=== PATIENT | female | born 1950 | race Caucasian/White ===

== ENCOUNTER 2018-10-23 19:38 | Inpatient (IN) ==
[2018-10-23] MEDS ORDERED: NALOXONE HCL 0.4 MG/1 ML VIAL/CARP IV PRN ×3 (20:09→21:22)
[2018-10-23] MEDS ORDERED: BISACODYL 10 MG SUPP PR PRN ×2 (20:09→21:22)
[2018-10-23] MEDS ORDERED: MAGNESIUM HYDROXIDE SUSP 30 ML UDC PO PRN ×2 (20:09→21:22)
[2018-10-23] MEDS ORDERED: ONDANSETRON INJ 2 MG/ML 2 ML VIAL IV PRN (20:14)
[2018-10-23] MEDS ORDERED: ACETAMINOPHEN 500 MG TAB PO PRN (20:27)
[2018-10-23] MEDS: MoRPHine SULFATE 4 MG/ML 1 ML CARP\\VIAL IV PRN (20:35)
[2018-10-23] MEDS ORDERED: DOCUSATE SODIUM/SENNA 50/8.6MG TAB PO SCH (21:22)
--- NOTE | 2018-10-23 21:41 | Progress Note ---
DATE: 10/23/2018 I was contacted from [place] about a patient who had fallen and injured her left hip. I accepted her in transfer. She is a patient of Dr. Johnston's and has had bilateral total hip arthroplasties. She tripped and fell landing on her left hip, sustaining a spiral fracture of her left distal femur distal to the hip implant with a butterfly fragment. She also has pain in her left hand. Further details can be gathered from Nicolasa Saravia's history and physical. Exam of the left hand shows no significant swelling. There is palmar bruising. She has full movement of the wrist and fingers with some discomfort in the central carpus near the carpometacarpal articulation. The distal radius and snuffbox area are not tender. The metacarpophalangeal joints in the remainder of the fingers are not tender. Skin closed. Circulation intact. Median, radial and ulnar motor and sensory intact. Left thigh is closed without bleeding and no significant swelling. Tenderness to mid thigh. Hip, knee, lower leg nontender. 1+ dorsalis pedis. She is in a Hare traction splint and was transferred over to a [facility]. She can feel her foot throughout with normal sensation to light touch and has 5/5 ankle and toe plantar flexion and dorsiflexion strength. CBC and PRP are noted. Her BUN is a little bit high and potassium is low. EKG has been obtained and chest x-ray shows no acute process. Hand x-rays show minor degenerative change but no acute fracture or dislocation is noted. Report reviewed. A lateral view of the hip is ordered. AP view of the pelvis shows bilateral hip arthroplasties without obvious complication. There is no dislocation. She does have some osteolysis around the left hip cup. Femur and knee x-rays show a spiral fracture with a large butterfly fragment anteriorly involving the distal femur. This is distal to the hip implant and goes down to the condylar flare. Her health history is noted. She is relatively healthy. A medical consult has been ordered. She has high blood pressure, smokes and has osteoporosis. She does not have any issues with metal sensitivity, MRSA, bleeding, blood clots, infections, cancer, diabetes. IMPRESSION: Left hand contusion and a left distal femur fracture. PLAN: Findings discussed. I will touch base with Dr. Johnston to see if he is available and any recommendations he may have. Otherwise, we will proceed to the OR tomorrow for open reduction internal fixation. This would involve a long lateral incision, open reduction of the fracture and plate and screws along with cables proximally. She is educated about the procedure. We talked about the risks, benefits and options and an informed consent was obtained. N.p.o. after midnight. Pain control, DVT prophylaxis with SCDs, icing. Palmer's traction 15 pounds. Check lateral hip x-ray.
--- NOTE | 2018-10-23 21:44 | XRay Report ---
XR hip LT 1V CLINICAL HISTORY: Dislocation status post reduction COMPARISON: 2007 DISCUSSION: A crosstable lateral view of the left hip is provided for interpretation. There are posts urgical changes of a total hip arthroplasty. No dislocation is visualized. IMPRESSION: Crosstable lateral view revealing no evidence of dislocation Electronically signed by: Maikel Arora M.D. 10/23/2018 9:43 PM
--- NOTE | 2018-10-23 21:58 | History and Physical Report ---
DATE OF ADMISSION: 10/23/2018 CHIEF COMPLAINT: Left femur pain with recent fall. HISTORY OF PRESENT ILLNESS: A 68-year-old female seen in the Emergency Room this evening by myself and Dr. Bass with a history of falling around 3:00 p.m. this afternoon at work. She went to [facility] and was found to have a left femur fracture, transferred to [facility] for definitive care. The patient has a history of bilateral total hip replacements by Dr. Johnston, the left hip 16 years ago, the right hip 7 years ago. She states until now she has had no issues with her left hip. She denies any back pain. She denies any numbness or tingling down either of her legs. PAST MEDICAL HISTORY: Significant for high blood pressure, high cholesterol. PAST SURGICAL HISTORY: Include left hip replacement 16 years ago, right hip replacement 7 years ago, appendectomy, soft tissue surgery with cyst removal around right clavicle/neck area. The patient denies any problems with anesthesia. MEDICATIONS: Include Lipitor 20 mg 1 tablet by mouth once daily, Ecotrin low strength 81 mg, aspirin 1 tablet by mouth daily, vitamin D 1000 units 2 capsules p.o. daily, hydrochlorothiazide 25 mg 1 tablet by mouth daily, tramadol 50 mg 1 tablet by mouth every 6 hours as needed for pain. ALLERGIES: CORTISONE, DICLOFENAC, LISINOPRIL, LOSARTAN. SOCIAL HISTORY: One-half pack per day smoker for the past 13 years, does not drink alcohol. REVIEW OF SYSTEMS: Positive for above HPI; otherwise, the patient denies fevers, chills, sweats, chest pain, shortness of breath, numbness or tingling into her lower extremities or injury to any other part of her body. PHYSICAL EXAMINATION: VITAL SIGNS: Blood pressure 156/91, pulse 97, respirations 20, temperature 37.4, oxygen sats on room air 97%. The patient is 5 feet 7, 85.5 kg. GENERAL: A 68-year-old female in no acute distress, alert and oriented x3 with normal mood and affect. Does appear to be in discomfort, however, on exam. HEENT: Head is normocephalic, atraumatic. She is wearing glasses. External ear is intact. NOSE: Nares are patent. Sclerae are normal. Extraocular movements are intact. Pupils equal, round, reactive to light. NOSE: Nares are patent. Mouth: Upper dentures, no teeth in her lower. Mucosa moist. No erythema, edema or exudate. NECK: Supple, nontender. No JVD, no carotid bruits. CARDIAC: Regular rate and rhythm. No murmurs, gallops or rubs. LUNGS: Clear to auscultation. No wheezes, rales or rhonchi. ABDOMEN: Soft, nontender, bowel sounds evident in all 4 quadrants. EXTREMITIES: Lower extremity: The patient is neurovascularly intact. Bilateral lower extremity with palpable dorsalis pedis, posterior tibial pulse. Calves are soft. Negative Edmond. Brisk capillary refill. Able to wiggle toes and ankle. The patient has no pain with log rolling to her right hip. Significant pain with any movement to her left hip. Skin to her left hip is intact with a healed scar. DIAGNOSTIC STUDIES: X-rays AP pelvis view, x-ray femur 2 view and left knee 2 view were performed and reviewed by Dr. Bass. X-rays show bilateral total hip arthroplasties. There is a comminuted oblique fracture of the distal left femoral diaphysis with medial displacement of the distal fracture fragment, suprapatellar joint effusion. IMPRESSION: Comminuted oblique fracture of the distal left femoral diaphysis with medial displacement of the distal fracture fragment. PLAN: The patient was seen by Dr. Bass. He discussed with the patient admission to the hospital with plans to perform open reduction and internal fixation of a left femur fracture tomorrow on 10/24/2018 when she is seen and cleared by anesthesia and medicine. The patient is aware of potential risks, complications and outcomes of the surgery. She would like to proceed. The consent was signed by her as well as Dr. Bass. She will be admitted again with plans for surgery tomorrow morning. She will be bed rest, n.p.o. after midnight. Please refer to Dr. Bass's note as well for more in-depth detail in regards to plan. [facility]
--- NOTE | 2018-10-23 22:05 | Hospitalist Consultation ---
Date of Consultation October 23, 2018 Assessment & Plan (1) Left femoral shaft fracture: Please refer to Dr. Ferrari's addendum for assessment and plan. Supervising Physician Co-Signing Physician Notes IM ATTENDING : Patient seen and examined. History obtained from patient and records. Preceding documentation by CT Robert reviewed. In addition : Baseline Functionality : Still able to do housework at home without rest/exertional chest pain, SOB prior to injury Chest x-ray from [facility] done today did not show any cardiopulmonary disease. Left hand x-ray did not show any acute fractures. Small radiopaque density adjacent to the distal radius noted (soft tissue calcification versus foreign body). EKG as per my interpretation rate 90, NSR, LAD, LAFB, no ischemia Final Assessment and Recommendations as follows : Left hip fracture secondary to mechanical fall Traumatic left hand injury Hypertension, slightly elevated secondary discomfort Hypokalemia likely secondary to diuretic Rx hx nonocclusive carotid artery disease on aspirin Rx Hyperlipidemia on statin Rx History impaired fasting glucose as per records Ongoing tobacco abuse No medical contraindication to contemplated Orthopedic procedure. Replace potassium, hold home diuretic for now Check magnesium with a.m. blood work Check hemoglobin A1c Nicotine patch PRN. DVT prophylaxis as per Orthopedic orders on admission. Recommend pharmacologic anticoagulation once bleeding risk is deemed to be minimal and negligible. Thank you very much for this consultation. Dr. Thornton will follow patient's progress. History of Present Illness Reason for Consultation: Pre Op Eval, Medical Management Requesting Physician: Dr. Bass Attending Physician: Dr. Ferrari History of Present Illness 68-year-old female who was transferred from [facility] for management of left femur fracture. 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 She reports she was walking into the kitchen this evening when her shoe got caught on the corner of the refrigerator and she fell to the ground. Patient reports she try to catch herself on some surrounding furniture however she was unable to. She reports she heard a loud crack when she fell to the ground. She did not strike her head and there was no loss conscious. Patient reports she otherwise been feeling well recently. No chest pain or shortness of breath. She denies lightheadedness, dizziness, diaphoresis, syncopal events. No abdominal pain, nausea, vomiting, diarrhea. She denies any urinary symptoms. At the time my exam, patient is resting in bed in no acute distress. Allergies Allergy/AdvReac Type Severity Reaction Status Date / Time capsaicin AdvReac Unknown NAUSEA Verified 10/23/18 21:16 cortisone AdvReac Unknown NAUSEA Verified 10/23/18 21:16 diclofenac AdvReac Unknown NAUSEA Verified 10/23/18 21:16 Diclopak AdvReac Unknown NAUSEA Verified 01/01/12 12:30 Home Medications Home Medications Medication Instructions Recorded Confirmed Type aspirin [Aspir-81] 81 mg PO DAILY 10/23/18 10/23/18 History atorvastatin 20 mg PO DAILY 10/23/18 10/23/18 History cholecalciferol (vitamin D3) 2,000 unit PO DAILY 10/23/18 10/23/18 History [Vitamin D3] hydrochlorothiazide 25 mg PO DAILY 10/23/18 10/23/18 History tramadol 50 mg PO Q6H PRN 10/23/18 10/23/18 History Patient History Medical History Osteoporosis (Chronic) HTN (hypertension) (Chronic) HLD (hyperlipidemia) (Chronic) Surgical History History of total right hip arthroplasty (Chronic) History of total left hip arthroplasty (Chronic) History of appendectomy (Chronic) Family History Brother Heart disease Social History Preferred Language: Ukrainian Communication Ability: Effective 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 Beliefs That Will Affect Care: None Current Living Situation: Spouse Other Information That Helps Us Care for You: No Feels Safe at Home: Yes Safety Concerns: Feels Safe At This Time Smoking Status: Current every day smoker Tobacco Type: cigarettes ; Cigarettes Per Day: 10 ; Do You Dip or Chew Tobacco: No ; Second Hand Exposure: No ; Tobacco Cessation Education Requested by Patient: No Hx Alcohol Use: No Hx Substance Use: No Review of Systems Review of Systems: ROS per HPI, all other systems reviewed and negative Physical Exam Constitutional: WD/WN, vitals as above Eyes: PERRL, conjunctivae normal, anicteric sclerae ENMT: external ear and nose normal, oropharynx normal Respiratory: normal respiratory effort, lungs clear to auscultation Cardiovascular: Rate/Rhythm: regular rate and regular rhythm Vessels: normal peripheral pulses Extremities: no edema Gastrointestinal (Abdomen): normal bowel sounds, soft, nontender, no hepatosplenomegaly Musculoskeletal: LLE in traction, left upper leg pain with minimal movement, CSM checks intact Skin: no rashes, warm and dry Neurologic: PERRL, EOMI, accommodation nl, no face palsy, no dysarthria Psychiatric: A+Ox3, euthymic affect Results & Data Vital Signs (Past 12 Hours) Vital Signs Temp Pulse Pulse Resp BP BP Pulse Ox 10/23/18 21:27 36.8 C 86 20 129/75 97 10/23/18 21:00 85 18 144/67 H 10/23/18 20:52 84 19 153/75 H 93 10/23/18 20:30 84 19 10/23/18 20:00 91 H 24 10/23/18 19:59 37.4 C 97 H 20 156/91 H 97 10/23/18 19:49 89 21 96 10/23/18 19:45 93 H 20 156/91 H 97 Laboratory Results Labs from [facility]: WBC 7.2 H/H 12.4/38 Platelets 233K Na+ 141 K+ 3.0 Creatinine 0.9 Diagnostic Findings PELVIS X-RAY IMPRESSION (from [facility]) Comminuted oblique fracture of the distal left femoral diaphysis with medial displacement of the distal fracture fragments.
[2018-10-23] MEDS: LACTATED RINGER'S 1,000 ML IV SCH (22:39)
[2018-10-23] MEDS: TRAMADOL HCL 50 MG TABLET PO PRN (22:39)
[2018-10-23] MEDS: DOCUSATE SODIUM/SENNA 50/8.6MG TAB PO SCH (22:39)
[2018-10-23] MEDS ORDERED: POTASSIUM CHLORIDE 20 MEQ TABCR PO STA (22:42)
[2018-10-24] MEDS: MoRPHine SULFATE 4 MG/ML 1 ML CARP\\VIAL IV PRN ×2 (01:06→07:40)
[2018-10-24 05:33] LABS: Basophils # (auto) 0.02 K/uL (0-0.2); Basophils % (auto) 0.2 %; Eosinophils # (auto) 0.02 K/uL (0-0.5); Eosinophils % (auto) 0.2 %; Hematocrit (blood only) 34.4 % (37-47); Hemoglobin 10.9 g/dL (12.0-16.0); Immature Granulocytes # (auto) 0.03 K/uL (0.00-0.02); Immature Granulocytes % (auto) 0.2 %; Lymphocytes # (auto) 1.94 K/uL (1.2-3.4); Lymphocytes % (auto) 15.5 %; Mean Corpuscular Hgb Conc 31.7 g/dL (32-36); Mean Corpuscular Volume 84.1 fL (80-100); Mean Platelet Volume 9.4 fL (7.4-10.4); Monocytes # (auto) 0.96 K/uL (0.11-0.59); Monocytes % (auto) 7.7 %; Neutrophils # (auto) 9.52 K/uL (1.4-6.5); Neutrophils % (auto) 76.2 %; Platelet Count 207 K/uL (130-400); RDW Coefficient of Variation 16.8 % (11.5-14.5); RDW Standard Deviation 51.8 fL (36.4-46.3); Red Blood Count 4.09 M/uL (4.2-5.4); White Blood Count 12.49 K/uL (4.8-10.8)
[2018-10-24 05:51] LABS: BUN Creatinine Ratio 19.3 (10-20); Calcium 8.6 mg/dl (8.5-10.1); Creatinine Clr Calc Pharmacy 59.3 ml/min; Est GFR (African American) 66.6; Est GFR (Non-African American) 57.4
[2018-10-24] MEDS ORDERED: CEFAZOLIN 2000MG 2,000 MG/15 ML SYR IV SCH (06:00)
[2018-10-24] MEDS ORDERED: MIDAZOLAM HCL 1 MG/ML 2ML VIAL ONE (07:18)
[2018-10-24] MEDS ORDERED: fentaNYL citrate 100 MCG/2 ML VIAL ONE ×2 (07:19)
[2018-10-24] MEDS ORDERED: LIDOCAINE HCL 2% 2 ML VIAL/AMP(20MG/ML) INFIL ONE ×2 (07:22→09:23)
[2018-10-24] MEDS ORDERED: ROCURONIUM BROMIDE 10 MG/ML 5 ML VIAL ONE (07:28)
[2018-10-24] MEDS ORDERED: SUCCINYLCHOLINE CHLORIDE 20 MG/ML 10 ML VIAL ONE (07:28)
[2018-10-24] MEDS: NICOTINE 14 MG/24 HR PATCH TD SCH (07:40)
[2018-10-24] MEDS: CHOLECALCIFEROL 1,000 UNITS TAB PO SCH (07:40)
[2018-10-24] MEDS: LACTATED RINGER'S 1,000 ML IV SCH (07:40)
--- NOTE | 2018-10-24 07:52 | History & Physical Bridge Note ---
Date of Service October 24, 2018 History & Physical Bridge Note I have examined the patient, reviewed the History & Physical and in the interval since the performance of the History & Physical I have noted the following changes of clinical significance: no changes noted
--- NOTE | 2018-10-24 08:13 | Anesthesiology Consultation ---
Date of Service October 24, 2018 Assessment & Plan (1) Encounter for pre-operative examination: Chart Review Chart Review: Acceptable Risk for Surgery and Patient NOT seen in Pre Admission Testing Consults Requested none History Surgery Operation Date: 10/24/18 09:00 Proposed Procedures p ORIF Tibial Plateau Fracture(Left) - Simone Bass MD Height/Weight Height: 5 ft 7 in Weight: 84.4 kg Allergies Allergy/AdvReac Type Severity Reaction Status Date / Time capsaicin AdvReac Unknown NAUSEA Verified 10/23/18 21:16 cortisone AdvReac Unknown NAUSEA Verified 10/23/18 21:16 diclofenac AdvReac Unknown NAUSEA Verified 10/23/18 21:16 Diclopak AdvReac Unknown NAUSEA Verified 01/01/12 12:30 Medications Home Medications Medication Instructions Recorded Confirmed Last Taken aspirin [Aspir-81] 81 mg PO DAILY 10/23/18 10/23/18 Unknown atorvastatin 20 mg PO DAILY 10/23/18 10/23/18 Unknown cholecalciferol (vitamin D3) 2,000 unit PO DAILY 10/23/18 10/23/18 Unknown [Vitamin D3] hydrochlorothiazide 25 mg PO DAILY 10/23/18 10/23/18 Unknown tramadol 50 mg PO Q6H PRN 10/23/18 10/23/18 Unknown Active Medications Generic Name Dose Route Start Last Admin Trade Name Freq PRN Reason Stop Dose Admin Atorvastatin Calcium 20 mg 10/24/18 09:00 10/24/18 07:40 Lipitor PO 11/23/18 08:59 20 mg QAM HAYDER Administration Lactated Ringer's 1,000 mls @ 75 mls/hr 10/23/18 20:45 10/24/18 07:40 Lr IV 11/22/18 20:44 75 mls/hr .[id number] HAYDER Administration Morphine Sulfate 2 - 4 mg 10/23/18 20:14 10/24/18 07:40 Morphine Sulfate IV 11/06/18 20:13 4 mg Q2H PRN Administration Pain Nicotine 14 mg 10/24/18 09:00 10/24/18 07:40 Nicoderm Cq TD 11/23/18 08:59 Not Given QAM HAYDER Senna/Docusate Sodium 2 tab 10/23/18 21:00 10/23/18 22:39 Senokot S PO 11/22/18 20:59 2 tab HS HAYDER Administration Senna/Docusate Sodium 2 tab 10/23/18 21:22 10/23/18 22:39 Senokot S PO 11/22/18 21:21 Not Given HS HAYDER Tramadol HCl 50 mg 10/23/18 20:20 10/23/18 22:39 Ultram PO 11/22/18 20:19 50 mg Q4H PRN Administration Pain Vitamin D 2,000 units 10/24/18 09:00 10/24/18 07:40 Vitamin D3 PO 11/23/18 08:59 2,000 units QAM HAYDER Administration NPO Date Last Intake of Fluids: 10/23/18 Time Last Intake of Fluids: 01:30 Date Last Intake of Solids: 10/23/18 Time Last Intake of Solids: 23:59 Past Medical History Medical History Osteoporosis (Chronic) HTN (hypertension) (Chronic) HLD (hyperlipidemia) (Chronic) Past Family History Family History Brother Heart disease Past Surgical History Surgical History History of total right hip arthroplasty (Chronic) History of total left hip arthroplasty (Chronic) History of appendectomy (Chronic) Social History Smoking Status: Current every day smoker tobacco type: cigarettes Smoking cigarettes per day: 10 Do You Dip or Chew Tobacco: No Hx Alcohol Use: No Hx Substance Use: No substance use type: does not use Physical Exam Vital Signs Last Vital Signs Temp 36.7 C 10/24/18 07:40 Pulse 79 10/24/18 07:40 Resp 18 10/24/18 07:40 BP 144/79 H 10/24/18 07:40 Pulse Ox 95 10/24/18 07:40 Testing Laboratory Results 10/24/18 05:20 10/24/18 05:20 Blood Type O Positive 10/23/18 20:52 Antibody Screen NEGATIVE 10/23/18 20:52
[2018-10-24] MEDS ORDERED: ePHEDrine sulfate 50 MG/ML AMP IV PRN (08:16)
[2018-10-24] MEDS ORDERED: HYDROmorphone INJ 1 MG/ML SYRINGE IV PRN (08:16)
[2018-10-24] MEDS ORDERED: ATROPINE SULFATE 0.1 MG/ML 10ML SYR IV PRN (08:16)
[2018-10-24] MEDS ORDERED: hydroCHLOROthiazide 25 MG TAB PO SCH (09:00)
[2018-10-24] MEDS ORDERED: ATORVASTATIN 20 MG TAB PO SCH (09:00)
[2018-10-24] MEDS ORDERED: ONDANSETRON INJ 2 MG/ML 2 ML VIAL ONE (09:23)
[2018-10-24] MEDS ORDERED: PROPOFOL IV EMULSION 10 MG/ML 20 ML VIAL IV ONE (09:23)
[2018-10-24] MEDS ORDERED: HYDROmorphone INJ 2 MG/ML SYR/VIAL ONE (09:23)
[2018-10-24] MEDS ORDERED: PHENYLEPHRINE 100MCG/ML 5ML SYR ONE ×2 (09:52→11:17)
[2018-10-24] MEDS ORDERED: BUPIVACAINE/EPINEPHRINE 0.5% MPF 1:200,000 30 ML VIAL ONE (12:01)
[2018-10-24] MEDS ORDERED: LIDOCAINE HCL 1% 20 ML VIAL ONE (12:02)
[2018-10-24] MEDS ORDERED: NEOSTIGMINE METHYLSULFATE 5 MG/5 ML SYR ONE (12:05)
[2018-10-24] MEDS ORDERED: GLYCOPYRROLATE 0.2 MG/ML VIAL ONE (12:05)
--- NOTE | 2018-10-24 12:39 | Operative Report ---
Post Operative Report Pre & Post Diagnosis Operation Date: 10/24/18 09:00 Pre-Op Diagnosis: LEFT FEMUR FRACTURE Post-Op Diagnosis: LEFT FEMUR FRACTURE Procedure Operation Date: 10/24/18 09:00 Actual Procedures p Open reduction internal fixation of left femur fracture (Left) - Simone Bass MD Surgeon Simone Bass MD Services Engineer MD Zak; Manjit BENNETT Estimated Blood Loss 50 Findings Consistent with Post-Op Diagnosis Specimens None Complications none Disposition Accompanied Patient To Recovery: Yes Disposition: Recovery Room Indications Left distal femur periprosthetic fracture with s/p Left total hip arthroplasty Description of Procedure Supine position, Standard prep and drape, Time out, exposure of distal lateral femur fracture and ORIF. Please see Dr Bass's op notes for specific details. I was present throughout the procedure, assisted in wound closure, dressings and transfer to PACU in a stable condition I attest to the content of the Intraoperative Record and any orders documented therein. Any exceptions are noted below.
--- NOTE | 2018-10-24 12:45 | Operative Report ---
Post Operative Report Pre & Post Diagnosis Operation Date: 10/24/18 09:00 Pre-Op Diagnosis: Periprosthetic LEFT FEMUR FRACTURE Post-Op Diagnosis: Periprosthetic LEFT FEMUR FRACTURE Procedure Operation Date: 10/24/18 09:00 Actual Procedures p Open reduction internal fixation of left femur periprosthetic fracture (Left) - Simone Bass MD Surgeon Simone Bass MD Optometric Assistant MD Zak; Manjit BENNETT Estimated Blood Loss 50 Findings Consistent with Post-Op Diagnosis Specimens None Drains None Anesthesia Type General Complications none Disposition Accompanied Patient To Recovery: No Disposition: Recovery Room Indications Patient 68 years old. She is status post left total hip replacement. She fell sustaining a spiral distal femur fracture below the well fixed implant with a large butterfly fragment. Treatment options risks and benefits were discussed and operative intervention was recommended. She agreed to proceed. She was a patient of Dr. Hightower. I spoke with him prior to surgery. Description of Procedure Informed consent obtained. Patient identified. She identified the operative site as a left femur. I marked with my initials. Preop surgical timeout performed. Preop dose of IV antibiotics given. She was positioned supine on the OR table in the anesthetic was administered. DVT prophylaxis with SCDs postoperatively with Lovenox and mechanical devices. Fluoroscopic images confirmed the left femur fracture and adequate visualization. The left leg was pre-scrubbed and prepped and draped in usual sterile fashion. Maintenance of distraction at all times. Bump under the left hip. A bump was placed under the left femur. Fluoroscopic guidance was utilized. A long lateral incision was made. IT band divided in line with the incision. The vastus lateralis was elevated up off of the intermuscular septum. The incision was carried proximally to the proximal extent of the fracture site with plans to do percutaneous fixation proximally. Dissection was carried out anterior to the lateral epicondyle distally in the knee joint was entered. The fracture site was opened and cleaned of hematoma as well as irrigated. To bone reduction clamps were utilized to reduce the butterfly fragment to the distal fragment which was then fixated with 2 bicortical lag screws from proximal medial to distal lateral and posterior. Subsequent to this the distal fracture fragment was reduced to the proximal fracture fragment and secured with 2 4.5 mm bicortical lag screws from distal medial to proximal posterior. This provided good secure fixation. A lateral condylar locking plate 14 holes was selected. This gave 4-5 points of fixation proximal to the tip of the stem. The plate was inserted open distally but sub-muscular proximal. Fluoroscopic guidance was utilized to position the plate which was then pinned in place. AP and lateral images confirmed positioning of the plate. A conical bicortical screw was inserted distally followed by a bicortical screw proximally just distal to the stem. Due to manipulation there was a slight loss of fracture reduction and 1 of the lag screws in the proximal fragment was removed and a longer screw was inserted with mormon of near anatomic alignment and good stability. Another bicortical screw was placed proximally just distal to the tip of the stem. A bicortical screw was placed distally in the Combi hole across the fracture site. For bicortical locking screws over guidewires were inserted distally. The central screw was exchanged for a locking screw. Proximally 2 percutaneous unicortical locking screws were inserted. These 2 percutaneous holes were then connected and a cable tension to 45 foot-pounds was inserted directly on the bone securing the plate proximally as well. There was excellent stability. Soft tissues were kept moist throughout the procedure. Bleeding was controlled with electrocautery. 5 bicortical locking screws +1 bicortical cortical screw were inserted distally. A cable and 2 bicortical screws proximally and 2 unicortical locking screws. Fluoroscopic images were obtained. Copious irrigation was performed. The muscle was brought down over the lateral condyle distally intact to the lateral intermuscular septum. The iliotibial band was then reapproximated using interrupted and running sutures of #1 Vicryl. The skin was closed in layers with 0 and 2-0 Vicryl and suha on the skin. The leg was cleaned with wet and dry sponges and a soft sterile dressing was applied Xeroform 4 x 4's ABDs and a full-length Rocco wrap. 1% lidocaine and 0.5% Marcaine containing epinephrine were injected into the skin and subcutaneous tissues postoperatively. Patient is awake from anesthesia without difficulty taken to the recovery room in stable condition. There were no specimens or complications. Counts were correct. Blood loss is estimated to be 50 cc. At the conclusion the operation there is no unavailable to speak to. Plan will be for nonweightbearing on the left leg. Bed to chair transfer PT OT. Postop antibiotics. Start Lovenox morning following surgery. Medicine consult. I attest to the content of the Intraoperative Record and any orders documented therein. Any exceptions are noted below.
--- NOTE | 2018-10-24 13:03 | Fluoroscopy Report ---
FL femur LT 2V CLINICAL HISTORY: ORIF LEFT FEMUR FX COMPARISON STUDY: None FLUOROSCOPY TIME: 1 minute 58 seconds NUMBER OF FLUOROSCOPIC IMAGES: 10 FINDINGS: Image intensifier support for open reduction internal fixation the left femur. IMPRESSION: Image intensifier support for open reduction internal fixation left femur. Anatomic align ment. The above report was generated using voice recognition software. It may contain grammatical, syntax or spelling errors. Electronically signed by: Kaleb Smith M.D. 10/24/2018 1:01 PM
--- NOTE | 2018-10-24 13:57 | Anesthesiology Progress Note ---
Date of Service October 24, 2018 Anesthesia Post Procedure Vital Signs Vital Signs: Temp Pulse Pulse Pulse Pulse Resp BP 10/24/18 13:35 92 H 12 10/24/18 13:25 36.5 C 89 14 10/24/18 13:15 90 13 10/24/18 13:05 90 12 10/24/18 12:55 93 H 21 10/24/18 12:45 99 H 15 10/24/18 12:37 36.9 C 104 H 15 10/24/18 07:40 36.7 C 79 18 10/24/18 03:10 36.9 C 83 16 10/23/18 23:02 37.0 C 78 16 10/23/18 21:27 36.8 C 86 20 10/23/18 21:00 85 18 144/67 H 10/23/18 20:52 84 19 153/75 H 10/23/18 20:30 84 19 10/23/18 20:00 91 H 24 10/23/18 19:59 37.4 C 97 H 20 156/91 H 10/23/18 19:49 89 21 10/23/18 19:45 93 H 20 156/91 H BP BP Pulse Ox 10/24/18 13:35 144/72 H 97 10/24/18 13:25 150/80 H 96 10/24/18 13:15 147/74 H 96 10/24/18 13:05 157/71 H 95 10/24/18 12:55 136/88 98 10/24/18 12:45 150/75 H 99 10/24/18 12:37 171/92 H 97 10/24/18 07:40 144/79 H 95 10/24/18 03:10 139/76 97 10/23/18 23:02 148/84 H 97 10/23/18 21:27 129/75 97 10/23/18 21:00 10/23/18 20:52 93 10/23/18 20:30 10/23/18 20:00 10/23/18 19:59 97 10/23/18 19:49 96 10/23/18 19:45 97 Pain Intensity Left Upper Distal Leg: Pain Intensity: 9 Left Leg: Pain Intensity: 0 Transfer of Care Handoff Completed per policy Notes Mental Status: alert / awake / arousable Patient Amnestic to Procedure: Yes Nausea / Vomiting: adequately controlled Pain: adequately controlled Airway Patency, RR, SpO2: stable & adequate BP & HR: stable & adequate Hydration State: stable & adequate Anesthetic Complications: no major complications apparent and Pt Satisfied with anesthetic care
[2018-10-24] MEDS ORDERED: KETOROLAC TROMETHAMINE 15 MG/ML VIAL IV PRN (13:58)
[2018-10-24] MEDS ORDERED: METOCLOPRAMIDE HCL INJ 5 MG/ML 2 ML VIAL IV PRN (13:58)
[2018-10-24] MEDS ORDERED: ALUMINUM/MAGNESIUM SUSP 30 ML UDC PO PRN (13:58)
[2018-10-24] MEDS ORDERED: OXYCODONE HCL IR 5 MG TAB (IMMEDIATE RELEASE) PO PRN (13:58)
[2018-10-24] MEDS: SODIUM CHLORIDE 0.9% 1000ML 1,000 ML IV SCH (14:37)
[2018-10-24] MEDS: ACETAMINOPHEN 500 MG TAB PO SCH ×3 (14:43→21:07)
--- NOTE | 2018-10-24 14:47 | XRay Report ---
XR wrist LT min 3V routine CLINICAL HISTORY: pain pain COMPARISON: None. DISCUSSION: Moderate generalized degenerative change. Significant degenerative change of the first ca rpal metacarpal joint. Moderate degenerative change of the radiocarpal joints. No evidence for fracture or dislocation. Bony alignment is anatomic. There is no evidence for soft ti ssue swelling. IMPRESSION: Moderate to rather significant degenerative change. This is most significant at the first carpal metacarpal joint. The above report was generated using voice recognition software. It may contain grammatical, syntax or spelling errors. Electronically signed by: Kaleb Smith M.D. 10/24/2018 2:45 PM
--- NOTE | 2018-10-24 15:44 | Hospitalist Progress Note ---
Date of Service October 24, 2018 Assessment & Plan (1) Left femoral shaft fracture: closed displaced communicated fracture of femur; and s/p open reduction and internal fixation of fracture on this hospital stay -This is a 68 year old F who had mechanical fall and went to [facility] on 10/23/18 before being transferred same day to [facility] on 10/23/18 for orthopedic surgery -admission X ray: comminuted oblique fracture of the distal left femoral jozef physis with medial displacement of the distal fracture fragment and suprapatellar joint effusion -medicine hospitalist service to continue to follow the patient as consult service with initial history and physical completed when patient arrived to [facility] on 10/23/18 -s/p Open reduction internal fixation of left femur periprosthetic fracture by orthopedics Dr. Bass on 10/24/18 for LEFT FEMUR FRACTURE -as per operative note by Dr. Bass; plan will be for nonweightbearing on the left leg. Bed to chair transfer PT OT. Postop antibiotics. Start Lovenox morning following surgery. -postop antibiotic of cefazolin -pain control medications and bowel regimen -monitor blood counts -continue IV fluids -will need trial of void with mtz when patient is more mobile perhaps starting on 10/25/18 Other surgical history -history of bilateral total hip replacements by Dr. Johnston, the left hip 16 years ago, the right hip 7 years ago. Hypertension -blood pressure stable -may resume home dose HCTZ 25 mg starting on 10/25/18, no hypokalemia based on 10/24/18 labs, trend electrolytes -continue home dose atorvastatin -continue aspirin 81 mg daily history of nonocclusive carotid artery disease -continue aspirin 81 mg daily -follow HbA1c Tobacco use -Nicotine patch DVT prophylaxis -SCD on right non operative leg -Lovenox 30 mg q12 hours starting on 10/25/18 AM Subjective Patient back on medical/surgical ramos after Open reduction internal fixation of left femur periprosthetic fracture by orthopedics. left lower extremity in ALFA bandage wrap dressing, patient right leg with SCD, patient able to wiggle toes bilaterally. Patient on nasal cannula, breathing comfortably. no chest pain. no palpitations. no headache. no dizziness. Physical Exam Constitutional: comfortable Eyes: PERRL, conjunctivae normal, anicteric sclerae EOM intact bilaterally ENMT: external ear and nose normal, oropharynx normal Neck: trachea midline, no thyromegaly normal visual inspection Respiratory: normal respiratory effort, lungs clear to auscultation Cardiovascular: Rate/Rhythm: regular rate and regular rhythm Gastrointestinal (Abdomen): normal bowel sounds, soft, nontender, no hepatosplenomegaly Musculoskeletal: Head/Neck/Chest: normocephalic and head atraumatic left lower extremity in ALFA bandage wrap dressing, patient right leg with SCD, patient able to wiggle toes bilaterally Neurologic: PERRL, EOMI, accommodation nl, no face palsy, no dysarthria Psychiatric: A+Ox3, euthymic affect Genitourinary: mtz Results & Data Vital Signs (Past 12 Hours) Vital Signs Temp Pulse Pulse Resp BP Pulse Ox 10/24/18 14:25 36.7 C 81 16 122/74 96 10/24/18 13:59 37.1 C 89 16 131/70 96 10/24/18 13:35 92 H 12 144/72 H 97 10/24/18 13:25 36.5 C 89 14 150/80 H 96 10/24/18 13:15 90 13 147/74 H 96 10/24/18 13:05 90 12 157/71 H 95 10/24/18 12:55 93 H 21 136/88 98 10/24/18 12:45 99 H 15 150/75 H 99 10/24/18 12:37 36.9 C 104 H 15 171/92 H 97 10/24/18 07:40 36.7 C 79 18 144/79 H 95
[2018-10-24] MEDS: CEFAZOLIN 2000MG 2,000 MG/15 ML SYR IV SCH (17:28)
[2018-10-24] MEDS ORDERED: TRANEXAMIC ACID 1,000 MG in 0.9 % SODIUM CHLORIDE 100 ML IV SCH (18:27)
[2018-10-24] MEDS ORDERED: NURSING DECISION MEDICATION ONE (18:35)
[2018-10-24] MEDS ORDERED: COUGH DROP (SUGAR FREE) LOZ 24 LOZ/1 BOX BUCCAL ONE (18:37)
[2018-10-24] MEDS ORDERED: COUGH DROP (SUGAR FREE) LOZ 24 LOZ/1 BOX BUCCAL PRN (18:38)
[2018-10-24] MEDS: DOCUSATE SODIUM/SENNA 50/8.6MG TAB PO SCH (21:07)
[2018-10-24] MEDS ORDERED: LACTATED RINGER'S 1,000 ML IV SCH (23:55)
[2018-10-25] MEDS: SODIUM CHLORIDE 0.9% 1000ML 1,000 ML IV SCH (00:17)
[2018-10-25] MEDS: CEFAZOLIN 2000MG 2,000 MG/15 ML SYR IV SCH (02:28)
[2018-10-25] MEDS: ENOXAPARIN INJ 30 MG/0.3 ML SYR SQ SCH ×2 (05:28→18:14)
[2018-10-25] MEDS: ACETAMINOPHEN 500 MG TAB PO SCH ×3 (05:29→22:15)
[2018-10-25 06:17] LABS: Hematocrit (blood only) 28.7 % (37-47); Hemoglobin 9.1 g/dL (12.0-16.0); Mean Corpuscular Hgb Conc 31.7 g/dL (32-36); Mean Corpuscular Volume 85.2 fL (80-100); Mean Platelet Volume 9.1 fL (7.4-10.4); Platelet Count 157 K/uL (130-400); RDW Coefficient of Variation 16.9 % (11.5-14.5); RDW Standard Deviation 52.3 fL (36.4-46.3); Red Blood Count 3.37 M/uL (4.2-5.4); White Blood Count 11.98 K/uL (4.8-10.8)
[2018-10-25 06:22] LABS: Estimated Average Glucose 143 mg/dl; Hemoglobin A1C 6.6 % (4.5-5.6)
[2018-10-25 06:43] LABS: BUN Creatinine Ratio 17.4 (10-20); Calcium 7.9 mg/dl (8.5-10.1); Creatinine Clr Calc Pharmacy 68.1 ml/min; Est GFR (African American) 78.8; Potassium 3.5 mmol/L (3.5-5.1)
[2018-10-25] MEDS ORDERED: POTASSIUM CHLORIDE 20 MEQ TABCR PO STA (07:46)
--- NOTE | 2018-10-25 08:20 | Anesthesiology Progress Note ---
Date of Service October 25, 2018 Anesthesia Post Procedure Vital Signs Vital Signs: Temp Pulse Pulse Resp BP Pulse Ox 10/25/18 07:36 37.1 C 76 16 117/69 94 10/25/18 02:45 37.1 C 77 16 131/76 95 10/24/18 22:50 37.3 C 107 H 18 134/61 95 10/24/18 19:32 37.2 C 86 17 130/74 94 10/24/18 16:59 37.0 C 92 H 18 153/84 H 92 10/24/18 16:00 36.9 C 82 17 129/76 96 10/24/18 14:25 36.7 C 81 16 122/74 96 10/24/18 13:59 37.1 C 89 16 131/70 96 10/24/18 13:35 92 H 12 144/72 H 97 10/24/18 13:25 36.5 C 89 14 150/80 H 96 10/24/18 13:15 90 13 147/74 H 96 10/24/18 13:05 90 12 157/71 H 95 10/24/18 12:55 93 H 21 136/88 98 10/24/18 12:45 99 H 15 150/75 H 99 10/24/18 12:37 36.9 C 104 H 15 171/92 H 97 Notes Mental Status: alert / awake / arousable Patient Amnestic to Procedure: Yes Nausea / Vomiting: adequately controlled Pain: adequately controlled Airway Patency, RR, SpO2: stable & adequate BP & HR: stable & adequate Hydration State: stable & adequate Anesthetic Complications: no major complications apparent and Pt Satisfied with anesthetic care
[2018-10-25] MEDS: NICOTINE 14 MG/24 HR PATCH TD SCH (08:22)
[2018-10-25] MEDS: CHOLECALCIFEROL 1,000 UNITS TAB PO SCH (08:27)
[2018-10-25] MEDS: ATORVASTATIN 20 MG TAB PO SCH (08:27)
[2018-10-25] MEDS: ASPIRIN 81 MG ECTAB PO SCH (08:27)
[2018-10-25] MEDS: hydroCHLOROthiazide 25 MG TAB PO SCH (08:27)
[2018-10-25] MEDS: TRAMADOL HCL 50 MG TABLET PO PRN ×2 (08:38→12:39)
--- NOTE | 2018-10-25 10:14 | Orthopedic Progress Note ---
Date of Service October 25, 2018 Assessment & Plan (1) Left femoral shaft fracture: S/P ORIF left femur periprosthetic fracture performed by Dr Bass 10-24-18 POD 1 with post-op anemia Left wrist sprain 1)Continue pain medication for pain control 2)Continue ice left femur/knee for pain and swelling. Patient also aware she can use ice for wrist as well. Continue left wrist splint for pain. 3)Continue PT/OT: NWBING LLE with walker, NO restrictions with ROM 4)Continue DVT prophylaxis with SCDs, lovenox, TEDS 5)Hbg is 9.1. Asymptomatic. Will repeat CBC in am. 6)Continue Urine Cath for now. 7)D/C plans to home with home health per patient request. 8) Appreciate medicine input. Present on Admission?: Yes Subjective Patient sitting up in bed. States she has "a little discomfort in her left knee". But pain medication is helping. PT saw her today and sat her up at edge of bed and was able to bend knee. Has not walked yet. Tolerating regular diet. Gtz in place. Denies f/c/s, CP, SOB, ligheadedness, dizziness. States when she fell she must have injured her left wrist because it has been hurting. She said xrays were done and she was place in a splint which as been helping. Physical Exam Physical Exam: B LE: Right with SCDs, Left with ALFA wrap and bandages intact. Ice to left knee/thigh area. Patient able to wiggle ankles and toes. 5/5 B TA, EHL, gastroc strength. Calves soft. Neg homans. Sensation intact to light touch. Brisk capillary refill. Palpable DP and PT pulses. Left wrist: in resting hand splint. upon removal some bruising and moderate swelling noted diffusely to wrist. NV intact. Motor to AIN, PIN, medial, radial, ulnar intact. Palpable radial pulse. Sensation intact to light touch. Mild tender diffusely to wrist. Limited motion of wrist due to discomfort. Results & Data Vital Signs (Past 12 Hours) Vital Signs Temp Pulse Pulse Resp BP Pulse Ox 10/25/18 10:10 134/76 10/25/18 07:36 37.1 C 76 16 117/69 94 10/25/18 02:45 37.1 C 77 16 131/76 95 10/24/18 22:50 37.3 C 107 H 18 134/61 95 Laboratory Results 10/25/18 10/25/18 10/24/18 Range/Units 06:00 06:00 05:20 WBC 11.98 H (4.8-10.8) K/uL RBC 3.37 L (4.2-5.4) M/uL Hgb 9.1 L (12.0-16.0) g/dL Hct 28.7 L (37-47) % MCV 85.2 (80-100) fL MCH 27.0 (25-34) pg MCHC 31.7 L (32-36) g/dL RDW Std Deviation 52.3 H (36.4-46.3) fL RDW Coeff of Ericka 16.9 H (11.5-14.5) % Plt Count 157 (130-400) K/uL MPV 9.1 (7.4-10.4) fL Sodium 139 (136-145) mmol/L Potassium 3.5 (3.5-5.1) mmol/L Chloride 105 (98-107) mmol/L Carbon Dioxide 29 (21-32) mmol/L Anion Gap 6.0 (3-11) BUN 15 (7-18) mg/dl Creatinine 0.87 (0.6-1.2) mg/dl Est Cr Clr Drug Dosing 68.1 ml/min Est GFR ( Amer) 78.8 Est GFR (Non-Af Amer) 68.0 BUN/Creatinine Ratio 17.4 (10-20) Glucose 144 H (70-99) mg/dl Estimat Average Glucose 143 mg/dl Hemoglobin A1c 6.6 H (4.5-5.6) % Calcium 7.9 L (8.5-10.1) mg/dl Diagnostic Findings XR wrist LT min 3V routine CLINICAL HISTORY: pain pain COMPARISON: None. DISCUSSION: Moderate generalized degenerative change. Significant degenerative change of the first carpal metacarpal joint. Moderate degenerative change of the radiocarpal joints. No evidence for fracture or dislocation. Bony alignment is anatomic. There is no evidence for soft tissue swelling. IMPRESSION: Moderate to rather significant degenerative change. This is most significant at the first carpal metacarpal joint.
--- NOTE | 2018-10-25 11:34 | Progress Note ---
DATE: 10/25/2018 SUBJECTIVE: She is resting comfortably in bed. Some leg pain. No nausea or vomiting. We discussed the results of the surgery. Negative effects of smoking upon healing are discussed. I have recommended smoking cessation. Dressing is clean and dry. Cannot really bend her knee secondary to pain. She has normal ankle and toe plantar flexion and dorsiflexion strength, normal foot sensation and a 1+ dorsalis pedis pulse. OBJECTIVE: She is afebrile. Her vital signs are stable. Her urine output is 0.5 mL per kilogram per hour. White count is 12, hemoglobin 9, hematocrit is 29, platelet count 157. PRP is noted. She is wearing her wrist immobilizer. X-rays of the wrist shows some first carpometacarpal joint arthritis but no fracture or dislocation of the wrist itself. Report is noted. IMPRESSION: 1. Left wrist contusion. 2. Periprosthetic fracture of the left femur, status post open reduction internal fixation. 3. Pathological fracture secondary to osteoporosis. 4. Tobacco abuse. PLAN: Recommend smoking cessation. We will check vitamin D level. PT and OT. Nonweightbearing on the left leg. May need wheelchair. She would like to go home and we will see how she does with PT to see if this is reasonable. Routine postop IV antibiotics, elevate and ice. I instructed her on some simple exercises, gluteal squeezes, quad sets, knee bending, calf pumps. She is due for DEXA scan and we will work with her to get this done as an outpatient. Check vitamin D level. Discontinue Gtz.
--- NOTE | 2018-10-25 12:00 | Hospitalist Progress Note ---
Date of Service October 25, 2018 Assessment & Plan (1) Closed left femoral fracture: closed displaced communicated fracture of femur (Periprosthetic fracture of the left femur); and s/p open reduction and internal fixation of fracture on this hospital stay Pathological fracture secondary to osteoporosis. -This is a 68 year old F who had mechanical fall and went to [facility] on 10/23/18 before being transferred same day to [facility] on 10/23/18 for orthopedic surgery -admission X ray: comminuted oblique fracture of the distal left femoral diaphysis with medial displacement of the distal fracture fragment and suprapatellar joint effusion -medicine hospitalist service to continue to follow the patient as consult service with initial history and physical completed when patient arrived to [facility] on 10/23/18 -s/p Open reduction internal fixation of left femur periprosthetic fracture by orthopedics Dr. Bass on 10/24/18 for LEFT FEMUR FRACTURE -as per operative note by Dr. Bass; nonweightbearing on the left leg. -preop and postop antibiotic of cefazolin have been given -PT/OT evaluations -pain control medications and bowel regimen -mtz discontinued -Vitamin D levels pending -DEXA scan as outpatient Left wrist contusion -injury when patient fell at home Other surgical history -history of bilateral total hip replacements by Dr. Johnston, the left hip 16 years ago, the right hip 7 years ago. Anemia -hemoglobin pre-op is 10.9 -postop Hgb 9.1, no blood transfusions needed at this time Hypertension -HCTZ 25 mg daily, potassium 20 meq given on 10/25/18 -continue home dose atorvastatin -continue aspirin 81 mg daily history of nonocclusive carotid artery disease -continue aspirin 81 mg daily -follow HbA1c Tobacco use -Nicotine patch DVT prophylaxis -SCD on right non operative leg -Lovenox 30 mg q12 hours starting on 10/25/18 AM patient's preference is for discharge to home when cleared by orthopedics rather than going to rehab facility at end of hospital stay Hospitalist medicine consult will continue to follow the patient while in the hospital as patient continues to be on primary orthopedic service by Dr. Bass primary care normally patient follows primary care with Donny Galloway PA-C but a post hospital primary care doctor appointment has been called ahead for the patient 10/29/2018 11:00 AM Provider Kody Love MD [facility] Subjective left leg in ALFA bandage dressing, SCDs on right leg, no lightheadedness. no dizziness. no vomiting. no acute distressful pain. patient noted that motion of left leg is limited. able to to wiggle the toes. no chest pain. no palpitations. patient's preference is for discharge to home when cleared by orthopedics rather than going to rehab facility at end of hospital stay Physical Exam Constitutional: comfortable Eyes: PERRL, conjunctivae normal, anicteric sclerae EOM intact bilaterally ENMT: external ear and nose normal, oropharynx normal Neck: trachea midline, no thyromegaly normal visual inspection Respiratory: normal respiratory effort, lungs clear to auscultation Cardiovascular: Rate/Rhythm: regular rate and regular rhythm Gastrointestinal (Abdomen): normal bowel sounds, soft, nontender, no hepatosplenomegaly Musculoskeletal: Head/Neck/Chest: normocephalic and head atraumatic left leg in ALFA bandage dressing, SCDs on right leg, Neurologic: PERRL, EOMI, accommodation nl, no face palsy, no dysarthria Psychiatric: A+Ox3, euthymic affect Results & Data Vital Signs (Past 12 Hours) Vital Signs Temp Pulse Pulse Resp BP Pulse Ox 10/25/18 10:10 134/76 10/25/18 07:36 37.1 C 76 16 117/69 94 10/25/18 02:45 37.1 C 77 16 131/76 95
[2018-10-25] MEDS: DOCUSATE SODIUM/SENNA 50/8.6MG TAB PO SCH (20:36)
[2018-10-26] MEDS: TRAMADOL HCL 50 MG TABLET PO PRN ×2 (00:28→05:30)
[2018-10-26] MEDS: ENOXAPARIN INJ 30 MG/0.3 ML SYR SQ SCH ×2 (05:32→17:37)
[2018-10-26] MEDS: ACETAMINOPHEN 500 MG TAB PO SCH ×3 (06:15→21:06)
[2018-10-26 07:11] LABS: Basophils # (auto) 0.02 K/uL (0-0.2); Basophils % (auto) 0.2 %; Eosinophils # (auto) 0.03 K/uL (0-0.5); Eosinophils % (auto) 0.3 %; Hematocrit (blood only) 26.5 % (37-47); Hemoglobin 8.5 g/dL (12.0-16.0); Immature Granulocytes # (auto) 0.04 K/uL (0.00-0.02); Immature Granulocytes % (auto) 0.4 %; Lymphocytes # (auto) 0.95 K/uL (1.2-3.4); Lymphocytes % (auto) 8.9 %; Mean Corpuscular Hgb Conc 32.1 g/dL (32-36); Mean Corpuscular Volume 84.1 fL (80-100); Mean Platelet Volume 9.3 fL (7.4-10.4); Monocytes # (auto) 0.95 K/uL (0.11-0.59); Monocytes % (auto) 8.9 %; Neutrophils # (auto) 8.64 K/uL (1.4-6.5); Neutrophils % (auto) 81.3 %; Platelet Count 153 K/uL (130-400); RDW Coefficient of Variation 16.9 % (11.5-14.5); RDW Standard Deviation 51.4 fL (36.4-46.3); Red Blood Count 3.15 M/uL (4.2-5.4); White Blood Count 10.63 K/uL (4.8-10.8)
[2018-10-26 07:41] LABS: BUN Creatinine Ratio 17.8 (10-20); Calcium 8.1 mg/dl (8.5-10.1); Est GFR (African American) 88.5; Est GFR (Non-African American) 76.4
[2018-10-26] MEDS: ASPIRIN 81 MG ECTAB PO SCH (07:56)
[2018-10-26] MEDS: hydroCHLOROthiazide 25 MG TAB PO SCH (07:57)
[2018-10-26] MEDS: ATORVASTATIN 20 MG TAB PO SCH (07:57)
[2018-10-26] MEDS: NICOTINE 14 MG/24 HR PATCH TD SCH (07:57)
[2018-10-26] MEDS: CHOLECALCIFEROL 1,000 UNITS TAB PO SCH (07:57)
--- NOTE | 2018-10-26 10:31 | Orthopedic Progress Note ---
Date of Service October 26, 2018 Assessment & Plan (1) Left femoral shaft fracture: S/P ORIF left femur periprosthetic fracture performed by Dr Bass 10-24-18 POD 2 with post-op anemia Left wrist sprain/contusion 1)Continue pain medication for pain control 2)Continue ice left femur/knee for pain and swelling. Patient also aware she can use ice for wrist as well. Continue left wrist splint out of bed when ambulating. 3)Continue PT/OT: NWBING LLE with walker, NO restrictions with ROM 4)Continue DVT prophylaxis with SCDs, lovenox, TEDS 5)Hbg is 8.5. Asymptomatic. Will repeat CBC in am. 6)D/C plans to home with home health per patient request. 8) Appreciate medicine input. Subjective Patient resting in bed. Pain is better but still knee pain with knee motion. Has been out of bed with PT/OT and able to ambulate NWBING LLE with walker. Tresa has been DCd. She is urinating. No BM yes. Tolerating regular diet. Denies f/c/s, CP, SOB, lightheadedness, dizziness. She left wrist is feeling better and has been working on wrist and financial aid director motion at rest, wearing splint when ambulating. She would like to go home upon D/C with home health. She is hoping for tomorrow. Physical Exam Physical Exam: B LE with teds. NV intact Palpable DP and PT pulses. Neg homans. Calves soft. 5/5 EHL, TA, gastroc strength. Sensation intact. Left femur incision suha intact. No active drainage. Dressing with scant dry blood. Moderate swelling around incision. Results & Data Vital Signs (Past 12 Hours) Vital Signs Temp Pulse Resp BP Pulse Ox 10/26/18 07:00 36.8 C 67 18 111/73 95 10/25/18 22:50 37.5 C 84 16 125/72 95 Laboratory Results 10/26/18 10/26/18 10/25/18 Range/Units 06:54 06:54 11:41 WBC 10.63 (4.8-10.8) K/uL RBC 3.15 L (4.2-5.4) M/uL Hgb 8.5 L (12.0-16.0) g/dL Hct 26.5 L (37-47) % MCV 84.1 (80-100) fL MCH 27.0 (25-34) pg MCHC 32.1 (32-36) g/dL RDW Std Deviation 51.4 H (36.4-46.3) fL RDW Coeff of Ericka 16.9 H (11.5-14.5) % Plt Count 153 (130-400) K/uL MPV 9.3 (7.4-10.4) fL Immature Gran % (Auto) 0.4 % Neut % (Auto) 81.3 % Lymph % (Auto) 8.9 % Wharton % (Auto) 8.9 % Eos % (Auto) 0.3 % Baso % (Auto) 0.2 % Immature Gran # (Auto) 0.04 H (0.00-0.02) K/uL Neut # (Auto) 8.64 H (1.4-6.5) K/uL Lymph # (Auto) 0.95 L (1.2-3.4) K/uL Wharton # (Auto) 0.95 H (0.11-0.59) K/uL Eos # (Auto) 0.03 (0-0.5) K/uL Baso # (Auto) 0.02 (0-0.2) K/uL Sodium 140 (136-145) mmol/L Potassium 3.0 L (3.5-5.1) mmol/L Chloride 104 (98-107) mmol/L Carbon Dioxide 29 (21-32) mmol/L Anion Gap 7.0 (3-11) BUN 14 (7-18) mg/dl Creatinine 0.79 (0.6-1.2) mg/dl Est Cr Clr Drug Dosing 75.0 ml/min Est GFR ( Amer) 88.5 Est GFR (Non-Af Amer) 76.4 BUN/Creatinine Ratio 17.8 (10-20) Glucose 152 H (70-99) mg/dl Calcium 8.1 L (8.5-10.1) mg/dl 25-OH Vitamin D Total 41.3 (30-100) ng/ml
--- NOTE | 2018-10-26 13:01 | Hospitalist Progress Note ---
Date of Service October 26, 2018 Assessment & Plan (1) Closed left femoral fracture: closed displaced communicated fracture of femur (Periprosthetic fracture of the left femur); and s/p open reduction and internal fixation of fracture on this hospital stay Pathological fracture secondary to osteoporosis. -This is a 68 year old F who had mechanical fall and went to [facility] on 10/23/18 before being transferred same day to [facility] on 10/23/18 for orthopedic surgery -admission X ray: comminuted oblique fracture of the distal left femoral diaphysis with medial displacement of the distal fracture fragment and suprapatellar joint effusion -medicine hospitalist service to continue to follow the patient as consult service with initial history and physical completed when patient arrived to [facility] on 10/23/18 -s/p Open reduction internal fixation of left femur periprosthetic fracture by orthopedics Dr. Bass on 10/24/18 for LEFT FEMUR FRACTURE -as per operative note by Dr. Bass; nonweightbearing on the left leg. -preop and postop antibiotic of cefazolin were completed -PT/OT evaluations were done -NWBING LLE with walker, NO restrictions with ROM as per orthopedics -pain control medications and bowel regimen -Continue ice left femur/knee for pain and swelling. -Vitamin D levels normal -recommend DEXA scan as outpatient -10/26/18 Orthopedic team is planning on discharge to home when ready. However, patient reports that no one will be able to pick her up from hospital and care for her today at home. She reports that her has to work late night. She would feel more comfortable if she is to be discharged by tomorrow when her will take personal day off from work. Patient also agreeable to have repeat CBC checked tomorrow to ensure stable hemoglobin. Hospitalist also provided follow up appointment with primary care clinic (normally patient follows primary care with Donny Galloway PA-C but a post hospital primary care doctor appointment has been called ahead for the patient 10/29/2018 11:00 AM Provider Kody Love MD [facility]) Left wrist contusion -injury when patient fell at home -Continue left wrist splint out of bed when ambulating, ice for wrist if needed Other surgical history -history of bilateral total hip replacements by Dr. Johnston, the left hip 16 years ago, the right hip 7 years ago. Anemia -hemoglobin pre-op is 10.9 -postop Hgb 9.1 to 8.5 -Hgb ordered for 10/27/18 AM, if Hgb stable then there is no medical contraindication against orthopedic service to discharge the patient on 10/27/18 Hypertension -HCTZ 25 mg daily, potassium 20 meq given on 10/25/18, potassium supplements ordered on 10/26/18 -continue home dose atorvastatin -continue aspirin 81 mg daily Hypokalemia -serum potassium is 3 on 10/26/18 -potassium 10 meq IV x 2 doses ordered, 40 meq oral potassium ordered -check serum potassium and serum magnesium after supplements are given -recommend to target serum potassium to at least 3.5 and serum magnesium to 2 before orthopedic discharge history of nonocclusive carotid artery disease -continue aspirin 81 mg daily Type 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 Her Hgb has downtrended to 8.5 but no lightheadedness and no dizziness and no shortness of breath. no chest pain. no abdominal pain. no acute leg pain Orthopedic team is planning on discharge to home when ready. However, patient reports that no one will be able to pick her up from hospital and care for her today at home. She reports that her has to work late night. She would feel more comfortable if she is to be discharged by tomorrow when her will take personal day off from work. Patient also agreeable to have repeat CBC checked tomorrow to ensure stable hemoglobin. Hospitalist also provided follow up appointment with primary care clinic (normally patient follows primary care with Donny Galloway PA-C but a post hospital primary care doctor appointment has been called ahead for the patient 10/29/2018 11:00 AM Provider Kody Love MD [facility]) Physical Exam Constitutional: comfortable Eyes: PERRL, conjunctivae normal, anicteric sclerae EOM intact bilaterally ENMT: external ear and nose normal, oropharynx normal Neck: trachea midline, no thyromegaly normal visual inspection Respiratory: normal respiratory effort, lungs clear to auscultation Cardiovascular: Rate/Rhythm: regular rate and regular rhythm Gastrointestinal (Abdomen): normal bowel sounds, soft, nontender, no hepatosplenomegaly Musculoskeletal: Head/Neck/Chest: normocephalic and head atraumatic left thigh in dressing Neurologic: PERRL, EOMI, accommodation nl, no face palsy, no dysarthria Psychiatric: A+Ox3, euthymic affect Results & Data Vital Signs (Past 12 Hours) Vital Signs Temp Pulse Resp BP Pulse Ox 10/26/18 07:00 36.8 C 67 18 111/73 95
[2018-10-26] MEDS ORDERED: POTASSIUM CHLORIDE 20 MEQ TABCR PO STA (13:15)
[2018-10-26] MEDS: POTASSIUM CHLORIDE / WTR 10 MEQ/100 ML PLCT IV SCH ×2 (13:44→15:03)
--- NOTE | 2018-10-26 13:44 | Progress Note ---
DATE: 10/26/2018 The patient was seen with Nicolasa Saravia and Lena Coleman. Please refer to their notes for further information. Vitamin D level is okay. Mildly anemic, but asymptomatic. She is doing well with PT and OT and the plan is to send her home tomorrow with home health resources. Follow up with me about 7-10 days for a recheck. Nonweightbearing and elevation stress. She will take Lovenox with teaching provided. Work on exercises and range of motion. Pain medication. If there are any problems with swelling, fevers, numbness, drainage, please call my office.
[2018-10-26] MEDS: DOCUSATE SODIUM/SENNA 50/8.6MG TAB PO SCH (21:05)
[2018-10-27] MEDS: ACETAMINOPHEN 500 MG TAB PO SCH (05:48)
[2018-10-27] MEDS: ENOXAPARIN INJ 30 MG/0.3 ML SYR SQ SCH (05:49)
[2018-10-27 07:22] LABS: Basophils # (auto) 0.02 K/uL (0-0.2); Basophils % (auto) 0.2 %; Eosinophils # (auto) 0.03 K/uL (0-0.5); Eosinophils % (auto) 0.3 %; Hematocrit (blood only) 25.8 % (37-47); Hemoglobin 8.4 g/dL (12.0-16.0); Immature Granulocytes # (auto) 0.05 K/uL (0.00-0.02); Immature Granulocytes % (auto) 0.5 %; Lymphocytes # (auto) 1.02 K/uL (1.2-3.4); Lymphocytes % (auto) 10.7 %; Mean Corpuscular Hgb Conc 32.6 g/dL (32-36); Mean Corpuscular Volume 83.8 fL (80-100); Mean Platelet Volume 9.2 fL (7.4-10.4); Monocytes # (auto) 0.65 K/uL (0.11-0.59); Monocytes % (auto) 6.8 %; Neutrophils % (auto) 81.5 %; Platelet Count 179 K/uL (130-400); RDW Coefficient of Variation 16.9 % (11.5-14.5); Red Blood Count 3.08 M/uL (4.2-5.4); White Blood Count 9.57 K/uL (4.8-10.8)
[2018-10-27 07:57] LABS: BUN Creatinine Ratio 16.2 (10-20); Calcium 8.4 mg/dl (8.5-10.1); Est GFR (African American) 94.3; Est GFR (Non-African American) 81.3; Magnesium 2.3 mg/dl (1.8-2.4); Potassium 3.2 mmol/L (3.5-5.1)
[2018-10-27] MEDS: CHOLECALCIFEROL 1,000 UNITS TAB PO SCH (08:05)
[2018-10-27] MEDS: ATORVASTATIN 20 MG TAB PO SCH (08:05)
[2018-10-27] MEDS: NICOTINE 14 MG/24 HR PATCH TD SCH (08:05)
[2018-10-27] MEDS: hydroCHLOROthiazide 25 MG TAB PO SCH (08:05)
[2018-10-27] MEDS: ASPIRIN 81 MG ECTAB PO SCH (08:05)
--- NOTE | 2018-10-27 09:12 | Orthopedic Progress Note ---
Date of Service October 27, 2018 Assessment & Plan (1) Left femoral shaft fracture: S/P ORIF left femur periprosthetic fracture performed by Dr Bass 10-24-18 POD 2 with post-op anemia Left wrist sprain/contusion 1)Continue pain medication for pain control 2)Continue ice left femur/knee for pain and swelling. Patient also aware she can use ice for wrist as well. Continue left wrist splint out of bed when ambulating. 3)Continue PT/OT: NWBING LLE with walker, NO restrictions with ROM 4)Continue DVT prophylaxis with SCDs, lovenox, TEDS 5)Hbg is 8.4. Asymptomatic. 6) Potassium trending upward (3.2 this AM). Spoke with hospitalist Dr. Rodriguez and he recommends discharging patient on 20 mEq of potassium chloride daily and he will contact patients PCP to have levels rechecked at her follow up appt this Thursday. 7)D/C plans to home with home health per patient request today. Provided paperwork for [employer] for her vehicle. 8) Appreciate medicine input. 9) Will follow up at [facility] in 2 wks for f/u and staple removal Subjective Patient resting in bed. Pain is better but still knee pain with knee motion. Has been out of bed with PT/OT and able to ambulate NWBING LLE with walker. Patient had BM this AM and She is urinating. Tolerating regular diet. Denies f/c/s, CP, SOB, lightheadedness, dizziness, lethargy. She states that her left wrist is feeling better and has been working on wrist and electric lineman motion at rest, wearing splint when ambulating. She would like to go home upon D/C with home health. She is waiting for her to arrive. Review of Systems Review of Systems: All systems reviewed & are unremarkable except as noted in HPI & below Physical Exam Physical Exam: ROXY LE with teds in place. NV intact Palpable DP and PT pulses. Neg homans. Calves soft. 5/5 EHL, TA, gastroc strength. Sensation intact. Left femur incision suha intact. No active drainage. Dressing clean, dry and intact. Minimal TTP around incision sites. Results & Data Vital Signs (Past 12 Hours) Vital Signs Temp Pulse Pulse Resp BP Pulse Ox 10/27/18 08:00 37.2 C 77 18 124/76 97 10/26/18 22:51 37.4 C 86 16 130/84 97 Laboratory Results 10/27/18 10/27/18 10/26/18 Range/Units 06:57 06:57 21:00 WBC 9.57 (4.8-10.8) K/uL RBC 3.08 L (4.2-5.4) M/uL Hgb 8.4 L (12.0-16.0) g/dL Hct 25.8 L (37-47) % MCV 83.8 (80-100) fL MCH 27.3 (25-34) pg MCHC 32.6 (32-36) g/dL RDW Std Deviation 52.0 H (36.4-46.3) fL RDW Coeff of Ericka 16.9 H (11.5-14.5) % Plt Count 179 (130-400) K/uL MPV 9.2 (7.4-10.4) fL Immature Gran % (Auto) 0.5 % Neut % (Auto) 81.5 % Lymph % (Auto) 10.7 % Grady % (Auto) 6.8 % Eos % (Auto) 0.3 % Baso % (Auto) 0.2 % Immature Gran # (Auto) 0.05 H (0.00-0.02) K/uL Neut # (Auto) 7.80 H (1.4-6.5) K/uL Lymph # (Auto) 1.02 L (1.2-3.4) K/uL Grady # (Auto) 0.65 H (0.11-0.59) K/uL Eos # (Auto) 0.03 (0-0.5) K/uL Baso # (Auto) 0.02 (0-0.2) K/uL Sodium 139 (136-145) mmol/L Potassium 3.2 L (3.5-5.1) mmol/L Chloride 105 (98-107) mmol/L Carbon Dioxide 29 (21-32) mmol/L Anion Gap 6.0 (3-11) BUN 12 (7-18) mg/dl Creatinine 0.75 (0.6-1.2) mg/dl Est Cr Clr Drug Dosing 79.0 ml/min Est GFR ( Amer) 94.3 Est GFR (Non-Af Amer) 81.3 BUN/Creatinine Ratio 16.2 (10-20) Glucose 148 H (70-99) mg/dl POC Glucose 188 H (70-99) Calcium 8.4 L (8.5-10.1) mg/dl Magnesium 2.3 (1.8-2.4) mg/dl 10/26/18 Range/Units 17:28 WBC (4.8-10.8) K/uL RBC (4.2-5.4) M/uL Hgb (12.0-16.0) g/dL Hct (37-47) % MCV (80-100) fL MCH (25-34) pg MCHC (32-36) g/dL RDW Std Deviation (36.4-46.3) fL RDW Coeff of Ericka (11.5-14.5) % Plt Count (130-400) K/uL MPV (7.4-10.4) fL Immature Gran % (Auto) % Neut % (Auto) % Lymph % (Auto) % Grady % (Auto) % Eos % (Auto) % Baso % (Auto) % Immature Gran # (Auto) (0.00-0.02) K/uL Neut # (Auto) (1.4-6.5) K/uL Lymph # (Auto) (1.2-3.4) K/uL Grady # (Auto) (0.11-0.59) K/uL Eos # (Auto) (0-0.5) K/uL Baso # (Auto) (0-0.2) K/uL Sodium (136-145) mmol/L Potassium (3.5-5.1) mmol/L Chloride (98-107) mmol/L Carbon Dioxide (21-32) mmol/L Anion Gap (3-11) BUN (7-18) mg/dl Creatinine (0.6-1.2) mg/dl Est Cr Clr Drug Dosing ml/min Est GFR ( Amer) Est GFR (Non-Af Amer) BUN/Creatinine Ratio (10-20) Glucose (70-99) mg/dl POC Glucose 191 H (70-99) Calcium (8.5-10.1) mg/dl Magnesium (1.8-2.4) mg/dl
--- NOTE | 2018-10-27 10:02 | Discharge Summary ---
Date of Service October 27, 2018 Admission HPI Per Admitting Provider HISTORY OF PRESENT ILLNESS: A 68-year-old female seen in the Emergency Room this evening by myself and Dr. Bass with a history of falling around 3:00 p.m. this afternoon at work. She went to [place] [facility] and was found to have a left femur fracture, transferred to [facility] for definitive care. The patient has a history of bilateral total hip replacements by Dr. Johnston, the left hip 16 years ago, the right hip 7 years ago. She states until now she has had no issues with her left hip. She denies any back pain. She denies any numbness or tingling down either of her legs. Admission Exam Per Admitting Provider PHYSICAL EXAMINATION: VITAL SIGNS: Blood pressure 156/91, pulse 97, respirations 20, temperature 37.4, oxygen sats on room air 97%. The patient is 5 feet 7, 85.5 kg. GENERAL: A 68-year-old female in no acute distress, alert and oriented x3 with normal mood and affect. Does appear to be in discomfort, however, on exam. HEENT: Head is normocephalic, atraumatic. She is wearing glasses. External ear is intact. NOSE: Nares are patent. Sclerae are normal. Extraocular movements are intact. Pupils equal, round, reactive to light. NOSE: Nares are patent. Mouth: Upper dentures, no teeth in her lower. Mucosa moist. No erythema, edema or exudate. NECK: Supple, nontender. No JVD, no carotid bruits. CARDIAC: Regular rate and rhythm. No murmurs, gallops or rubs. LUNGS: Clear to auscultation. No wheezes, rales or rhonchi. ABDOMEN: Soft, nontender, bowel sounds evident in all 4 quadrants. EXTREMITIES: Lower extremity: The patient is neurovascularly intact. Bilateral lower extremity with palpable dorsalis pedis, posterior tibial pulse. Calves are soft. Negative Edmond. Brisk capillary refill. Able to wiggle toes and ankle. The patient has no pain with log rolling to her right hip. Significant pain with any movement to her left hip. Skin to her left hip is intact with a healed scar. Principal Diagnosis Comminuted oblique fracture of the distal left femoral diaphysis with medial displacement of the distal fracture fragment. Discharge Exam ROXY LE with teds in place. NV intact Palpable DP and PT pulses. Neg homans. Calves soft. 5/5 EHL, TA, gastroc strength. Sensation intact. Left femur incision suha intact. No active drainage. Dressing clean, dry and intact. Minimal TTP around incision sites. Discharge Data Allergies Allergy/AdvReac Type Severity Reaction Status Date / Time capsaicin AdvReac Unknown NAUSEA Verified 10/23/18 21:16 cortisone AdvReac Unknown NAUSEA Verified 10/23/18 21:16 diclofenac AdvReac Unknown NAUSEA Verified 10/23/18 21:16 Diclopak AdvReac Unknown NAUSEA Verified 01/01/12 12:30 Consultations 10/23/18 20:18 Consult Case Management - Discharge Planning Routine 10/23/18 21:22 Consult Anesthesiology Routine 10/24/18 07:36 Consult Hospitalist Routine Procedures Performed Operation Date: 10/24/18 09:00 Actual Procedures p Open reduction internal fixation of left femur fracture (Left) - Simone Bass MD Ordered Studies 10/24/18 07:00 FL femur LT 2V Routine FL fluoroscopy <1hr Routine Hospital Course (1) Left femoral shaft fracture: Hospital Course: Patient fell at work on Thursday, intially seen at [facility] and then transferred to [facility]. Patient underwent ORIF of her left femoral shaft fracture on Thursday, became anemic and hypokalemic after surgery. Management by orthopedics and hospitalist group at . Patient is still anemic but asymptomatic. Potassium is trending upward and per hospitalist recommendation discharge on 20 mEq daily. Today patient was doing very well with only minimal pain. She is ready to be discharged home today with home health and has a f/u appt with her PCP on Thursday. Patient will have her CBC and metabolic panels rechecked at that appt. S/P ORIF left femur periprosthetic fracture performed by Dr Bass 10-24-18 POD 2 with post-op anemia Left wrist sprain/contusion 1)Continue pain medication for pain control 2)Continue ice left femur/knee for pain and swelling. Patient also aware she can use ice for wrist as well. Continue left wrist splint out of bed when ambulating. 3)Continue PT/OT: NWBING LLE with walker, NO restrictions with ROM 4)Continue DVT prophylaxis with SCDs, lovenox, TEDS 5)Hbg is 8.4. Asymptomatic. 6) Potassium trending upward (3.2 this AM). Spoke with hospitalist Dr. Rodriguez and he recommends discharging patient on 20 mEq of potassium chloride daily and he will contact patients PCP to have levels rechecked at her follow up appt this Thursday. 7)D/C plans to home with home health per patient request today. Provided paperwork for [employer]red[employer] for her vehicle. 8) Appreciate medicine input. 9) Will follow up at [facility] in 2 wks for f/u and staple removal Total Time Total Time Spent Total Time Spent (In Minutes): 25 mins Total Time Includes: Examination of the Patient, Discharge Planning, Medication Reconciliation and Communication With Other Providers Discharge Plan Discharge Items Patient Disposition: Home - Home Health Services Reason For Visit: LEFT FEMUR FRACTURE Discharge Diagnosis: left femur fracture Condition: Good Discharge Goals: Decrease discomfort and Improve function Activity: Per 'Additional Instructions' section Bathing: Keep incision dry Bathing Comment: may shower tomorrow Sexual Activity: Wait until after follow-up appointment Exercise/Sports: Wait until after follow-up appointment Driving/Machine Use Comment: No driving until cleared by commission specialist Weightbearing: Left non-weightbearing Weightbearing Comment: lower extremity; use walker or wheelchair for ambulation assistance Non-emergency contact: Surgeon Call non-emergency contact if: you have any medication questions, your symptoms worsen, your pain is not controlled, your pain is concerning for you, your temperature is above 101, your wound has increased redness, your wound has increased drainage and your wound pain has increased Follow-up/Referrals: Kody Love M.D. [Other] - 10/29/18 11:00 am Simone Bass MD [Emergency Provider] - 11/09/18 9:15 am Donny Galloway PA-C [Primary Care Provider] - Diet: Carb Consistent or DM2 Addtl Provider Instructions: normally patient follows primary care with Donny Galloway PA-C but a post hospital primary care doctor appointment has been called ahead for the patient 10/29/2018 11:00 AM Provider Kody Love MD [facility] Type 2 diabetes mellitus without penitentiary current use of insulin -HbA1c 6.6 -patient should discuss with primary medical doctor on starting oral anti- hyperglycemics versus diet control and lifestyle changes recommend DEXA scan as outpatient Orthopedic instructions 1. Do not put weight on your left leg at any time. Use walker or wheelchair to assist with ambulation and mobility. 2. Recommend smoking cessation. 3. Do your exercises as instructed: gluteal squeezes, quad sets, knee bending, calf pumps. 4. Will order DEXA scan as an outpatient. 5. Ice to left knee/thigh and/or left wrist as needed for pain/swelling 6. Elevate left lower extremity above your heart to relieve pain/swelling. 7. GLYNN stockings on bilateral legs during the day, off at night, to help prevent blood clots. 8. Pain medication as prescrbed. 9. Lovenox as prescribed to prevent blood clots for 2-6 weeks after surgery. 10. Resume your regular diet as instructed 11. Follow up with your primary doctor as scheduled on 10/29/18 at 11:00 a.m. 12. Follow up with Dr. Bass as scheduled 13. Call Dr. Bass's office with any increased pain, swelling, drainge or temperature over 101. 14. Wear wrist brace on left wrist as needed for comfort. 15. Okay to shower on Thursday10/29/18. Do not scrub or soak incision. Pat incision dry. 16 . Home nurses may change dressing left thigh. Prescriptions: New acetaminophen [Tylenol Extra Strength] 500 mg Tablet 1,000 mg PO Q8 Qty: 30 RF: 0 enoxaparin [Lovenox] 30 mg/0.3 mL syringe 30 mg SQ Q12H Qty: 28 RF: 1 oxycodone 5 mg tablet 5 - 10 mg PO Q6H PRN (Reason: pain) Qty: 30 RF: 0 tramadol 50 mg tablet 50 mg PO Q6H PRN (Reason: pain) Qty: 30 RF: 0 potassium chloride 10 mEq tablet extended release 20 meq PO DAILY Qty: 20 RF: 0 Continued atorvastatin 20 mg Tablet 20 mg PO DAILY RF: 0 aspirin [Aspir-81] 81 mg Tablet,Delayed Release (Dr/Ec) 81 mg PO DAILY RF: 0 hydrochlorothiazide 25 mg Tablet 25 mg PO DAILY RF: 0 cholecalciferol (vitamin D3) [Vitamin D3] 1,000 unit Capsule 2,000 unit PO DAILY RF: 0 Discontinued tramadol 50 mg Tablet 50 mg PO Q6H PRN (Reason: Pain) RF: 0 Stand-Alone Forms: [facility] [place], Opioid Pain Management Elvis/Other Patient Handouts: Enoxaparin Sodium Porcine Solution for injection, Diabetes Healthy Meals, Diabetes Carbs, Diabetes Exercise Benefits, Diabetes Exercise Get Started, Diabetes Activity Tips, Diabetes Manage A1C Test Discharge Orders: Discharge Order (Routine); Ordered 10/27/18 Ordered By: Samy Ponce Admission Data Admit Date/Time: 10/23/18 20:43 Attending Provider: Simone Bass Admit Provider: Simone Bass Primary Care Provider: Donny Galloway Other Providers: Giuseppe Diamond ; Akil Rodriguez ; [place],Nursing Agency Service: Surgical Services
--- NOTE | 2018-10-28 10:21 | Communication Note ---
Date of Service: October 28, 2018 PCP contacted re: hypokalemia and asked to recheck serum K next week.
== END 2018-10-27 11:05 | disposition home health service (06) | DRG 481 ==
LOC: ED 19:38 → 3N 20:43